=== PATIENT | female | born 1960 | race Caucasian/White ===

== ENCOUNTER 2018-03-06 20:11 | Emergency (ER) | payer MEDICAID ==
[~2018-03-06] VITALS: Ht 157.5 cm; Wt 49.9 kg
[2018-03-06 20:32] LABS: HEMATOCRIT 37.9 % (37.0-47.0); HEMOGLOBIN 12.5 gm/dL (12.0-15.0); MCH 28.5 pg (26.0-34.0); MCHC 32.8 g/dL (28.0-37.0); MCV 86.8 fL (80.0-100.0); MPV 6.8 fl. (7.2-11.1); RBC 4.37 mil/uL (4.20-5.00); RDW-CV 12.2 % (10.5-14.5); WBC 8.4 thou/uL (4.0-11.0)
[2018-03-06] MEDS ORDERED: OMEPRAZOLE40 MG (20:38)
[2018-03-06] MEDS ORDERED: LISINOPRIL20 MG (20:39)
[2018-03-06] MEDS ORDERED: ZANAFLEX4 MG (20:39)
[2018-03-06] MEDS ORDERED: NEURONTIN600 MG (20:40)
[2018-03-06] MEDS ORDERED: ENABLEX15 MG (20:40)
[2018-03-06] MEDS ORDERED: EFFEXOR XR75 MG (20:41)
[2018-03-06] MEDS ORDERED: ZYRTEC 10 MG TA10 MG (20:41)
[2018-03-06] MEDS ORDERED: SINGULAIR 10 MG10 M1 (20:42)
[2018-03-06] MEDS ORDERED: CRESTOR10 MG (20:42)
[2018-03-06] MEDS ORDERED: VENLAFAXINE HC150 M1 (20:43)
[2018-03-06] MEDS ORDERED: SYSTANE ULTRA 010 ML (20:43)
[2018-03-06] MEDS ORDERED: EYE DROP TEARS15 ML (20:45)
[2018-03-06] MEDS ORDERED: COMBIVENT RESPIM4 GM (20:46)
[2018-03-06 20:56] LABS: ANION GAP 9 mmol/L (7-16); BUN 8 mg/dL (7-18); CALCIUM 9.5 mg/dL (8.5-10.1); CHLORIDE 94 mmol/L (98-107); CO2 26 mmol/L (21-32); CREATININE 0.9 mg/dL (0.6-1.3); GLUCOSE 89 mg/dL (70-99); POTASSIUM 4.3 mmol/L (3.5-5.1); SODIUM 129 mmol/L (136-145)
[2018-03-06 20:58] LABS: SALICYLATE 6.4 mg/dL (2.8-20.0)
[2018-03-06 20:59] LABS: ACETAMINOPHEN < 2 ug/mL (10-30); ALCOHOL < 10 mg/dL (<10)
[2018-03-06 21:01] LABS: ALKALINE PHOSPHATASE 70 U/L (46-116); SGOT 55 U/L (15-37); SGPT 29 U/L (30-65); TOTAL BILIRUBIN 0.3 mg/dL (<0.1-1.0)
[2018-03-06 21:02] LABS: AMMONIA < 10 umol/L (11-32)
[2018-03-06 22:46] LABS: URINE BILIRUBIN NEGATIVE (Negative); URINE BLOOD NEGATIVE (Negative); URINE CLARITY CLEAR; URINE COLOR YELLOW; URINE GLUCOSE-RANDOM NEGATIVE (Negative); URINE KETONES NEGATIVE (Negative); URINE LEUKOCYTES 1+ (Negative); URINE NITRITE NEGATIVE (Negative); URINE PROTEIN NEGATIVE (Negative); URINE SPECIFIC GRAVITY <= 1.005 (1.005-1.030); URINE UROBILINOGEN 0.2 E.U./dl (0.2-1.0)
[2018-03-06 22:54] LABS: AMP/METHAMP POSITIVE (Negative); BARBITURATES Negative (Negative); BENZODIAZEPINES Negative (Negative); COCAINE Negative (Negative); METHADONE Negative (Negative); OPIATES Negative (Negative); PCP Negative (Negative); THC POSITIVE (Negative)
[2018-03-06 22:55] LABS: BACTERIA None Seen /HPF (None Seen); CASTS None Seen /LPF (None Seen); CRYSTALS None Seen /LPF (None Seen); SQUAMOUS 4-10 Moderate /LPF (0-3); URINE RBC None Seen /HPF (0-2); URINE WBC 0-5 Rare /HPF (0-5)
[2018-03-07 01:23] VITALS: BP 138/80
--- NOTE | 2018-03-07 13:49 | EKG ---
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[id number] Requested By: Dorita Isabel Order Number: [id number] MD: Manish Nolan Measurements Intervals [place] Rate: 72 P: 64 MS: 160 QRS: 29 QRSD: 97 T: 65 QT: 385 QTc: 422 Interpretive Statements Sinus rhythm Left atrial enlargement RSR' in V1 or V2, right VCD or RVH No previous ECG available for comparison Electronically Signed On 03-07-2018 13:49:28 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
== END 2018-03-07 01:23 | disposition home or self-care (01) ==
LOC: M.ERS 20:11
PROVIDERS: Personal Emergency Response Attendant
DX: R44.3 Hallucinations, unspecified (principal); F15.10 Other stimulant abuse, uncomplicated; J45.909 Unspecified asthma, uncomplicated; K21.9 Gastro-esophageal reflux disease without esophagitis; E78.00 Pure hypercholesterolemia, unspecified; Z88.6 Allergy status to analgesic agent; Z88.8 Allergy status to other drugs, medicaments and biological substances; Z79.899 Other long term (current) drug therapy